=== PATIENT | female | born 1985 | race African-American/Black ===

== ENCOUNTER 2017-01-03 19:40 | Emergency (ER) | payer MEDICAID ==
--- NOTE | 2017-01-11 17:46 | ER ---
ADMIT: 01/03/2017 RM/LOC: ER [facility] MR#: [id number] [address] [address] DREAD CNATOR [address] [address] Emergency Room Report SEX: F AGE: 31 : 1985 DATE: 01/03/2017 ADDENDUM: This patient comes to the ER because she had a sudden onset of vaginal bleeding and cramping. She is currently 13 weeks' . No vomiting or diarrhea. 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 On physical exam, her abdomen is soft, nontender to palpation. Vaginal exam, she has a small amount of blood in the vagina. The cervix is closed. Her beta- quant was 48,000. Rh was positive. heart tones were 156. DIAGNOSIS: Threatened . The patient was more comfortable. Once she got to the ER, she states her cramping had eased up and so had the bleeding. She is to follow up with Dr. Morales this week in the office. Please see my T- sheet. JENNY Pascual / Daryl Aguilar MD / vanessa JOB #: [id number] CC: Martell Tong MD, Attending Physician
[2017-06-27] MEDS ORDERED: COLACE-DPS100 MG PO (18:46)
[2017-06-27] MEDS ORDERED: PRENATAL VITAM1 EAC6 PO (18:46)
[2017-06-27] MEDS ORDERED: PEPCID DPS20 MG PO (18:46)
[2017-06-27] MEDS ORDERED: MOTRIN-DPS800 MG PO (18:47)
[2017-06-27] MEDS ORDERED: PERCOCET 5-3251 EACH PO (18:47)
== END 2017-01-03 22:38 | disposition home or self-care (01) ==
LOC: ER 19:40
DX: O20.0 Threatened abortion (principal); Z3A.13 13 weeks gestation of pregnancy

== ENCOUNTER 2017-03-09 08:41 | Day surgery (SDC) | payer MEDICAID ==
[~2017-03-09] VITALS: Ht 154.9 cm; Wt 78.0 kg
--- NOTE | 2017-04-02 22:22 | HP ---
ADMIT: 03/09/2017 RM/LOC: [facility] MR#: [id number] [id number] [place], [place] [address] DREAD ANDERSON [address] [address] History and Physical SEX: F AGE: 31 : 1985 DATE OF SERVICE: CHIEF COMPLAINT: Cervical shortening. HISTORY OF PRESENT ILLNESS: This is a 31-year-old female, 8, para 2-0- 5-2, with an intrauterine at 21 and 5/7th weeks' gestation with an estimated date of confinement of 07/15/2017. She presents today for cerclage placement. Her has been complicated by history of 5 elective abortions, history of x2, and Zika virus exposure. Her Zika virus testing was negative. She was seen and evaluated by Maternal Medicine yesterday. At that time, growth anatomy were noted to be normal, however, she was noted to have a cervical length of only 2.5 cm with significant funneling and dynamic changes. Maternal Medicine did recommend cerclage placement as well as starting vaginal progesterone. We have reviewed the risks and benefits of this and at this time, she would like to proceed. PAST MEDICAL HISTORY: She denies hypertension, diabetes, asthma, kidney, or thyroid disease. PAST OBSTETRICAL HISTORY: She has had two term deliveries one in 2003, one in 2004. She has had five induced abortions. PAST SURGICAL HISTORY: x2. SOCIAL HISTORY: She is not . She denies tobacco, alcohol, or drug use. ALLERGIES: NO KNOWN DRUG ALLERGIES. CURRENT MEDICATIONS: 1. vitamins. 2. Reglan as needed for nausea. LABORATORY DATA: Blood type is A positive. Antibody screen negative. Rubella immune. HIV negative. RPR nonreactive. Hepatitis B surface antigen negative. Gonorrhea chlamydia is negative. Pap was normal. First trimester screening was normal, and second trimester maternal serum alpha fetoprotein was normal. PHYSICAL EXAMINATION: VITAL SIGNS: Height is 64.5 inches, weight 171.5 pounds. Blood pressure 108/70. GENERAL: This is a pleasant female, in no acute distress. HEENT: Head is normocephalic and atraumatic. Pupils are equal, round, and reactive to light and accommodation. Extraocular muscles are intact. NECK: Supple. HEART: Regular rate and rhythm. LUNGS: Clear bilaterally. ABDOMEN: Soft, nontender, nondistended, and gravid. ADMIT: 03/09/2017 RM/LOC: [facility] MR#: [id number] [address] [address] DREAD ANDERSON [address] [place] [address] History and Physical SEX: F AGE: 31 : 1985 EXTREMITIES: Nontender. heart tones are 150. IMPRESSION: 1. This is a 31-year-old female, 8, para 2-0-5-2, with an intrauterine at 21 and 5/7 weeks' gestation. 2. Cervical insufficiency. PLAN: At this time, we do plan to proceed with cerclage placement. The risks, benefits, and alternatives have been reviewed with the patient including, but not limited to the risk for bleeding, infection, and failure as well as the potential for further complications with the including rupture of membranes, labor, tearing of the cervix if labor occurs. All of her questions have been answered and she agrees to proceed. Valerie Morales MD/ vanessa JOB #: [id number] CC: Valerie M Carmen, Attending Physician Valerie Morales, Family Physician
--- NOTE | 2017-04-02 22:28 | OR ---
ADMIT: 03/09/2017 RM/LOC: [facility] MR#: [id number] [address] [place], [place] [address] DREAD ANDERSON [address] [address] Operative/Delivery Room Report SEX: F AGE: 31 : 1985 SURGERY DATE: 03/09/2017 SURGEON: Valerie Morales MD PREOPERATIVE DIAGNOSES: 1. Intrauterine at 21 and 5/7th weeks' gestation. 2. Cervical insufficiency. POSTOPERATIVE DIAGNOSES: 1. Intrauterine at 21 and 5/7th weeks' gestation. 2. Cervical insufficiency. PROCEDURE: Farrar's cervical cerclage. ANESTHESIA: Spinal. COMPLICATIONS: None. ESTIMATED BLOOD LOSS: Less than 10 mL. FLUIDS: Crystalloid. INDICATIONS: This is a 31-year-old female, 8, para 2-0-5-2, who was seen and evaluated by maternal medicine on 03/08/2017. At that time, she did have an ultrasound. anatomy was noted to be normal; however, her cervix was noted to be 2.5 cm with funneling above it. [facility] did recommend starting progesterone vaginally at night as well as placing the cervical cerclage to prevent it from funneling further. We did review the risks, benefits, and alternatives prior to proceeding, and she agreed to proceed. DESCRIPTION OF PROCEDURE: The patient was properly identified. Informed consent was obtained. She was then taken to the operating room where spinal anesthesia was placed. She was then placed in the dorsal lithotomy position using the candy-cane stirrups. heart tones were noted to be 154 at the beginning of the procedure. Her bladder was emptied using a red Monroy catheter. A weighted speculum was ADMIT: 03/09/2017 RM/LOC: [facility] MR#: [id number] [address] [facility] [address] [place], [place] [address] DREAD ANDERSON [address] [address] Operative/Delivery Room Report SEX: F AGE: 31 : 1985 placed in the vagina and a right-angle retractor was used to visualize the cervix. The cervix was then grasped with a ring forceps. A 5 mm Mersilene band was then placed initially going from the 6 o'clock to 3 o'clock position and then the 3 o'clock to 12 o'clock position. The second needle of the Mersilene band was used to go from the 6 to 9 and then 9 to 12. The cerclage was tied down at the 12 o'clock position. The strings were trimmed. Excellent hemostasis was noted. heart tones at the end of the procedure were noted to be 144. The patient tolerated the procedure well. Sponge, lap, needle, and instrument counts were correct. The patient was taken to the recovery room in stable condition. Valerie Morales MD/ vanessa JOB #: [id number] CC: Valerie Morales MD, Attending Physician Valerie Morales MD, Family Physician
[2017-06-27] MEDS ORDERED: PRENATAL VITAM1 EAC6 PO (18:46)
[2017-06-27] MEDS ORDERED: COLACE-DPS100 MG PO (18:46)
[2017-06-27] MEDS ORDERED: PEPCID DPS20 MG PO (18:46)
[2017-06-27] MEDS ORDERED: PERCOCET 5-3251 EACH PO (18:47)
[2017-06-27] MEDS ORDERED: MOTRIN-DPS800 MG PO (18:47)
== END 2017-03-09 18:30 | disposition home or self-care (01) ==
LOC: SSS 08:41
PROC: 0UVC7ZZ Restriction of Cervix, Via Natural or Artificial Opening (ICD-10-PCS; principal; 2017-03-09)
DX: O26.872 Cervical shortening, second trimester (principal); Z3A.21 21 weeks gestation of pregnancy; Z98.890 Other specified postprocedural states; Z79.899 Other long term (current) drug therapy